=== PATIENT | male | born 1970 | race Caucasian/White ===

== ENCOUNTER → 2017-07-10 | Outpatient (CLI) | payer OTHER | LOC: CARD 12:53 | PROVIDERS: ATTEND Internal Medicine Cardiovascular Disease | DX: I47.1 Supraventricular tachycardia (principal); R00.2 Palpitations; I77.89 Other specified disorders of arteries and arterioles | CPT/HCPCS: 93306 ==

== ENCOUNTER → 2019-04-15 | Outpatient (CLI) | payer OTHER ==
[2019-04-15] MEDS: CATHETER FLUSH 10 ML SYR IV PRN ×2 (07:47→07:48)
[2019-04-15 09:23] VITALS: BP 114/76
[2019-04-15 09:43] VITALS: BP 131/80
--- NOTE | 2019-04-16 01:24 | STRESS TEST ---
DATE OF SERVICE: RESTING AND POST EXERCISE TECHNETIUM-99M TETROFOSMIN SPECT CT IMAGING ORDERING PHYSICIAN: Linda Guaman APRN PRIMARY PHYSICIAN: Sandrine Cooper MD CLINICAL DIAGNOSIS: Palpitations. Baseline images were carried out after injection of 10.53 mCi technetium-99m Tetrofosmin. Subsequently, exercise was carried out on a treadmill. Franklin protocol was employed. Heart rate response to exercise was normal. Blood pressure response to exercise was somewhat hypertensive. In the recovery phase, there was approximately [address] segment depression. The patient did not report chest discomfort. There was no significant arrhythmia. Exercise is difficult to interpret during exercise because of considerable baseline artifact. After the patient had indicated that he would not be able to go for more than another minute, 28.8 mCi of technetium-99m Tetrofosmin were injected and the exercise was continued for another minute. He exercised for a total of 13 minutes and 20 seconds in the Franklin protocol. He attained 95% of maximum predicted heart rate and 13.9 METS of workload. Review of images at rest and following stress does not indicate any significant perfusion defects consistent with significant myocardial ischemia or infarction. Gated images show normal global left ventricular systolic function with normal regional wall motion. Left ventricular ejection fraction is calculated to be 47%. CONCLUSIONS: 1. No evidence of significant myocardial ischemia or infarction on this study. 2. Normal regional wall motion. 3. Global left ventricular systolic function appears to be at the lower end of normal. Ejection fraction is calculated to be 47%. Subjectively, it appears somewhat higher than that. 4. Hypertensive response to exercise. Job ID: [id number] DocumentID: [id number] Dictated Date: 04/15/2019 20:58:15 Cardiac Surgeon Date: 04/16/2019 01:24:16 Dictated By: YASMANY LORD MD, MA, FACP, FACC,
== END ==
LOC: CARD 07:24
PROVIDERS: ATTEND Nurse Practitioner Family
DX: I47.1 Supraventricular tachycardia (principal)
CPT/HCPCS: 78452; 93017; 93225; 93226; 93306